=== PATIENT | female | born 1955 | race Caucasian/White ===

== ENCOUNTER → 2019-04-07 | Outpatient (CLI) | payer OTHER ==
[~2019-04-07] MED LIST: ADULT LOW DOSE81 MG PO; HYDROCODONE-AP1 EAC6 PO; PROZAC40 MG PO; TOPAMAX50 MG PO
== END ==
LOC: RAD 10:43
DX: M47.816 Spondylosis without myelopathy or radiculopathy, lumbar region (principal); M46.06 Spinal enthesopathy, lumbar region